=== PATIENT | male | born 1975 | race Caucasian/White ===

== ENCOUNTER 2021-09-18 19:16 | Emergency (ER) | payer OTHER, SELFPAY ==
--- NOTE | ~2021-09-18 | XR_ITS ---
EXAMINATION: XR SHOULDER, RIGHT CLINICAL INFORMATION: Right-sided shoulder pain COMPARISON: None TECHNIQUE: Three views of the right shoulder. FINDINGS: The bones and soft tissues are normal aside from the presence of a possible Hill-Sachs deformity involving the humeral head. No acute fracture. Glenohumeral and acromioclavicular alignment is anatomic with normal joint space. No abnormal soft tissue calcifications. XR/XR shoulder RT min 2V IMPRESSION: No acute fracture, subluxation or dislocation. Question of Hill-Sachs deformity humeral head
[2021-09-18 19:39] VITALS: BP 183/110; PULSE 80; RESP 18; TEMP 36.8; O2SAT 100; BMI 34.9
[2021-09-18] MEDS: Ibuprofen 600 MG TABLET PO (19:49)
--- NOTE | 2021-09-18 20:16 | ED_ITS ---
HPI - Extremity Problem General Chief complaint: Extremity Injury, Upper Stated complaint: Pec pain; injury at gym Time Seen by Provider: 09/18/21 20:16 History of Present Illness HPI Narrative: Patient complains of right-sided pectoral muscle pain when he felt a loud pop and sudden onset of severe pain while weightlifting He does use low-dose steroids for muscle building He denies any numbness or weakness no other injury Related Data Previous Rx's Medication Instructions Recorded acetaminophen 500 mg tablet 1,000 mg PO QID PRN #30 tab 09/18/21 ibuprofen 600 mg tablet 600 mg PO Q6H PRN #20 tab 09/18/21 oxycodone 5 mg tablet 5 mg PO Q6H PRN #14 tab 09/18/21 Allergies Allergy/AdvReac Type Severity Reaction Status Date / Time No Known Allergies Allergy Verified 09/18/21 19:39 Review of Systems Review of Systems: Positive for right pectoral chest wall pain Negatives are no fever no chills no dizziness no weakness no headache no neck pain no numbness weakness or tingling no other chest pain no shortness of breath no palpitations no abdominal pain no nausea or vomiting Yes all other systems are reviewed and are negative [facility] Past Medical History Source: nursing notes reviewed Medical History (Updated 09/19/21 @ 00:02 by Background Dakristen) No pertinent past medical history Social History Social History Advance Directives: No Advance Directives Information Provided: Yes Physical Exam 2 Vital Signs: Vital Signs: Last Vital Signs Temp 98.2 F 09/18/21 19:39 Pulse 80 09/18/21 19:39 Resp 18 09/18/21 19:39 BP 183/110 H 09/18/21 19:39 Pulse Ox 100 09/18/21 19:39 BMI result Body Mass Index 34.9 General appearance is no acute distress Head is normocephalic atraumatic Neck is supple and nontender The chest is clear to auscultation bilateral The chest wall had focal tenderness on the lateral aspect of the anterior right pectoral area, skin was normal no obvious swelling or ecchymosis now Movement of the area or tension of the muscle produced pain The abdomen was soft and nontender Extremities the right shoulder was not significantly tender but movement of the area did produce significant pain, the right arm was neurovascular intact distal and all skin was normal Neuro no focal motor sensory deficits Course Course Course Narrative: Patient with likely pectoral muscle tendon or muscle tear with a loud pop and abrupt onset of pain while exercising 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 muscle building was given a sling and discharged to follow with orthopedics, right shoulder x-ray was negative Discharge Plan Discharge Clinical Impression: Muscle tear Patient Disposition: Home, Self-Care Additional Instructions: I believe you tore your right biceps muscle or tendon Follow with orthopedist for further evaluation Return any time any worse condition or any concerns Your blood pressure was high in the ER 183/110 which may be from pain but it should be recheck with her primary care doctor to make sure you do not have high blood pressure Prescriptions: New ibuprofen 600 mg tablet 600 mg PO Q6H PRN (Reason: pain) Qty: 20 RF: 0 acetaminophen 500 mg tablet 1,000 mg PO QID PRN (Reason: pain) Qty: 30 RF: 0 oxycodone 5 mg tablet 5 mg PO Q6H PRN (Reason: pain) Qty: 14 RF: 0 Referrals: Karel Garcia MD [Physician] - 2 days (Right pectoral muscle tear) Stand Alone Forms: Work/School Release Interventions: ED Discharge Assessment Last Done: 09/18/21 20:41 Discharge Date/Time: 09/18/21 20:42
== END 2021-09-18 20:42 | disposition home or self-care (01) ==
PROVIDERS: Emergency Provider Emergency Medicine Emergency Medical Services
DX: S29.011A Strain of muscle and tendon of front wall of thorax, initial encounter (principal); X50.0XXA Overexertion from strenuous movement or load, initial encounter; Y93.B3 Activity, free weights; Y92.9 Unspecified place or not applicable; Y99.9 Unspecified external cause status
CPT/HCPCS: 73030; 99283

== ENCOUNTER → 2021-09-28 10:17 | Outpatient (BNVA) | payer OTHER, SELFPAY | PROVIDERS: Visit Provider Physician Assistant ==

== ENCOUNTER 2021-10-17 08:31 | Day surgery (SDC) | payer OTHER, SELFPAY ==
[2021-10-11 14:41] VITALS: BMI 34.9
--- NOTE | 2021-10-16 12:39 | P.CONAN_ITS ---
Documented by User: Kim Moore NP 10/16/21 12:40 HPI - Anesthesia Eval Consult details Narrative: 45yo M for Right Pectoralis Muscle Repair PMFSH Active Problems Active Problems: All Active Problems (Updated 09/28/21 @ 12:40 by Amie Hamilton PA-C) Pectoralis muscle rupture (Acute) Past Medical History Medical History (Updated 09/28/21 @ 12:40 by Amie Hamilton PA-C) No pertinent past medical history Surgical History Surgical History (Updated 10/11/21 @ 14:37 by Tamy Martell RN) Surgical history unknown Social History Social History (Updated 09/28/21 @ 10:27 by Chelsea Bush CMA) Patient Tobacco Use Status: Tobacco use Unknown Advance Directives: No Advance Directives Information Provided: Yes Advance Directives on File: No Current occupational status: employed 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 Allergies Allergy/AdvReac Type Severity Reaction Status Date / Time No Known Allergies Allergy Verified 09/28/21 10:26 Exam Exam Date and Time: October 16, 2021 1239 Height,Weight and Vital Signs: Height 5 ft 9 in Weight 107.501 kg Assessment and Plan Assessment Anesthesia Assessment: Chart Reviewed Documented by User: Garry Romano 10/17/21 09:47 PMFSH Past Medical History Medical History (Updated 09/28/21 @ 12:40 by Amie Hamilton PA-C) No pertinent past medical history Family History Family history of problems with anesthesia: No Surgical History Surgical History (Updated 10/11/21 @ 14:37 by Tamy Martell RN) Surgical history unknown History of Problems with Anesthesia: No Social History Social History (Updated 09/28/21 @ 10:27 by Chelsea Bush CMA) Patient Tobacco Use Status: Tobacco use Unknown Advance Directives: No Advance Directives Information Provided: Yes Advance Directives on File: No Current occupational status: employed 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 Allergies Allergy/AdvReac Type Severity Reaction Status Date / Time No Known Allergies Allergy Verified 09/28/21 10:26 Exam Airway Mallampati Class: III Neck ROM: Full Denture: Upper and Lower Loose/Missing/Broken Teeth: Yes Heart: rrr Lungs: bl breath sounds Assessment and Plan Final Anesthetic Review Family History of Problems with Anesthesia: No History of Problems with Anesthesia: No NPO: Yes ASA Class: II Final Preanesthetic Review: Meds/Allgs Chart Reviewed and Anes Risks/Benef Reviewed Patient Risk: Intermediate Procedure Risk: Intermediate Anesthetic Plan Anesthetic Plan: GA Disposition: Standard PACU
[2021-10-17] VITALS (18 sets, daily range): BP systolic 99–132; BP diastolic 43–79; PULSE 69–82; RESP 12–19; TEMP 36.4–36.9; O2SAT 93–98
[2021-10-17] MEDS: Lactated Ringers 1,000 ML 100 ML IVCONT (09:05)
--- NOTE | 2021-10-17 09:20 | MHC.SHP ---
Pre-Procedural Eval Section A Date of Service: 10/17/21 The patient is an INPATIENT: No Changes since office visit: Yes Patient answered all questions; No Cold of Flu in the past 2 weeks, No New Medical Problems and No Changes in Medication The History & Physical has been completed within 30 days and I have reviewed it.: Yes Section B Chief Complaint: strain of muscle Allergies: Allergies Allergy/AdvReac Type Severity Reaction Status Date / Time No Known Allergies Allergy Verified 09/28/21 10:26 Plan I have reviewed the history and physical and performed a pertinent physical examination on my patient. No changes have occurred unless specified.
--- NOTE | 2021-10-17 12:57 | PM.OP ---
Brief Operative Note Date of Service: 10/17/21 Pre-op diagnosis: Right pectoralis muscle rupture Post-op diagnosis: same Procedure: Right pectoralix muscle repair with allograft Implants: 4x6 dermal allograft and peters and nephew button x4 Surgeon: Karel Garcia MD Anesthesia: GETA and local Was an Product Safety And Standards Engineer used for this Procedure?: Yes Product Safety And Standards Engineer: Amie Hamilton Estimated blood loss (mL): 200 IV fluids (mL): 1,200 Pathology: none sent Condition: stable Disposition: PACU
[2021-10-17] MEDS: HYDROmorphone HCl 0.5 MG/0.5 ML SYRINGE 0.25 MG IVPUSH (13:55)
[2021-10-17] MEDS: oxyCODONE HCl Immed Release 5 MG TABLET PO (15:27)
[2021-10-17] MEDS: oxyCODONE HCl ER 10 MG TAB.ER.12H PO (15:29)
--- NOTE | 2021-10-22 12:09 | W.PM.OPN ---
Operative Note Operative Note Date of Service: 10/17/21 Narrative: Date of Service: 10/17/21 Pre-op diagnosis: Right pectoralis muscle rupture Post-op diagnosis: same Procedure: Right pectoralix muscle repair with allograft Implants: 4x6 dermal allograft and peters and nephew button x4 Surgeon: Karel Garcia MD Anesthesia: GETA and local Was an Senior Estimator used for this Procedure?: Yes Senior Estimator: Amie Hamilton Estimated blood loss (mL): 200 IV fluids (mL): 1,200 Pathology: none sent Condition: stable Disposition: PACU Patient was brought to the operating room and placed in a beach chair position on the surgical table. He was prepped and draped in standard sterile fashion and a time out was called to identify proper site, proper procedure and IV antibiotics per weight were administered. I began by making a deltopectoral incision. Once through the skin the cephalic vein was identified and retracted laterally and the deltopectoral interval was digitally explored. The pectoralis muscle was torn and retracted. There was an intact clavicular head of the subscapularis intact but the bony attachment of the sternal head had been avulsed. There was scarring both anteriorly and posteriorly with very hypertrophic pectoralis musculature. I was slowly able to identify the retracted tendon and tagged this with fiber tape suture. Because the retraction was extensive and the tendon diminutive I elected to place a dermal allograft around the tendon. This was whipstitched into place using 3 FiberTapes. I then was able to mobilize the pectoralis back to its humeral insertion just lateral to the bicipital groove. I then attached each of the suture tapes to a Peters and Nephew button. The anterior cortex was then drilled and each of these were dunked through their respective holes. The drill holes were staggered to avoid stress riser. I then roughed up the attachment site with a right sure and then brought H sutured down to the bone reapproximating the normal anatomy of the sternal head of the pectoralis muscle. My suture knots were tied and the arm was taken through range of motion. The repair was stable and the normal anatomy had been restored. Once this was done I irrigated copiously. I then closed with absorbable suture and and skin glue and Steri-Strips. Patient was placed in sterile dressing extubated brought to recovery room in stable condition. There were no known complications.
== END 2021-10-17 18:05 | disposition home or self-care (01) ==
PROVIDERS: Visit Provider Orthopaedic Surgery
PROC: (CPT 24341; principal; 2021-10-17 10:00)
DX: S29.011A Strain of muscle and tendon of front wall of thorax, initial encounter (principal); X50.0XXA Overexertion from strenuous movement or load, initial encounter; X50.3XXA Overexertion from repetitive movements, initial encounter; Y93.B3 Activity, free weights; Y92.39 Other specified sports and athletic area as the place of occurrence of the external cause
CPT/HCPCS: 24341; C1713; C1762; J0690; J1100; J1170; J2250; J2370; J2405; J3010

== ENCOUNTER → 2021-10-18 15:38 | Outpatient (BNVA) | payer OTHER, SELFPAY | PROVIDERS: Visit Provider Physician Assistant ==

== ENCOUNTER → 2021-10-22 10:39 | Outpatient (BNVA) | payer OTHER, SELFPAY | PROVIDERS: Visit Provider Physician Assistant | DX: S29.011A Strain of muscle and tendon of front wall of thorax, initial encounter (principal) ==

== ENCOUNTER → 2021-11-19 13:04 | Outpatient (BNVA) | payer OTHER, SELFPAY | PROVIDERS: Visit Provider Physician Assistant ==

== ENCOUNTER → 2021-12-17 12:57 | Outpatient (BNVA) | payer OTHER, SELFPAY | PROVIDERS: PCP Internal Medicine; Visit Provider Physician Assistant | DX: S29.011D Strain of muscle and tendon of front wall of thorax, subsequent encounter (principal); Z48.817 Encounter for surgical aftercare following surgery on the skin and subcutaneous tissue; X58.XXXD Exposure to other specified factors, subsequent encounter | CPT/HCPCS: 99212 ==

== ENCOUNTER → 2022-01-10 08:46 | Outpatient (BNVA) | payer OTHER, SELFPAY | PROVIDERS: PCP Internal Medicine; Visit Provider Orthopaedic Surgery | DX: Z13.89 Encounter for screening for other disorder (principal) ==

== ENCOUNTER 2022-01-11 11:14 | Emergency (ER) | payer OTHER, SELFPAY ==
--- NOTE | ~2022-01-11 | CT_ITS ---
EXAMINATION: CT ABDOMEN AND PELVIS WITHOUT AND WITH CONTRAST CLINICAL INFORMATION: Painless hematuria. COMPARISON: None available for comparison. TECHNIQUE: Multidetector volumetric imaging was performed of the abdomen and pelvis before and after the IV administration of 85 mL of Omnipaque 300 intravenous contrast. Sagittal and coronal reformatted images were obtained on the technologist's workstation. This CT examination was performed using dose optimization techniques as appropriate, variously including the following: *Automated exposure control *Adjustment of mA and/or kV according to patient size (this includes techniques or standardized protocols for targeted exams where dose is matched to indication/reason for exam; i.e. extremities or head) *Use of iterative reconstruction technique DLP: 1063 mGy-cm FINDINGS: LUNG BASES: The visualized lung bases are unremarkable. LIVER, GALLBLADDER, AND BILIARY TREE: The liver is normal in size, shape, and attenuation. No focal hepatic lesion or biliary ductal dilatation is present. The gallbladder is unremarkable with no evidence of radiopaque gallstones, gallbladder wall thickening, or obvious pericholecystic inflammatory changes. PANCREAS: Unremarkable SPLEEN: Unremarkable ADRENAL GLANDS: Unremarkable KIDNEYS AND URETERS: The kidneys are normal in size, shape, and attenuation. No hydronephrosis, hydroureter, or calculi seen. No perinephric stranding. BLADDER: Unremarkable GASTROINTESTINAL TRACT: Significant fecal residual is noted throughout the entire large bowel. Nonvisualized appendix. The small bowel loops are decompressed. The stomach is decompressed. ABDOMINAL WALL: No significant hernia is appreciated. LYMPH NODES: Evaluation of the retroperitoneum is technically limited due to lack of body fat, grossly unremarkable. VASCULAR: Grossly unremarkable. PELVIC VISCERA: The prostate measures 5.0 x 4.8 cm, mildly enlarged and is protruding into the base of the bladder. There is no evidence of any free fluid and/or free air. No definite pelvic lymphadenopathy. OSSEOUS STRUCTURES: Unremarkable CT/CT abdomen pelvis wo/w con IMPRESSION: 1. No CT evidence of any urinary tract calculi and/or upper tract mass identified. 2. Unremarkable appearance of the bladder. The prostate is mildly enlarged. 3. Significant fecal residual within the large bowel and nonvisualized appendix. Fleischner guidelines were followed.
[2022-01-11 11:16] VITALS: BP 150/91; PULSE 75; RESP 20; TEMP 36.4; O2SAT 98; BMI 33.2
[2022-01-11 11:29] LABS: MANUAL DIFF FLAG NO
[2022-01-11 11:33] LABS: Basophils Percent Auto 0.4 % (0-2); Eosinophils Absolute Auto 0.1 X10*3/uL (0.0-0.4); Eosinophils Percent Auto 1.8 % (0-4); Hematocrit 42.8 % (42.0-52.0); Imm Gran Abs Auto 0.03 X10*3/uL (0.00-0.03); Imm Gran Pct Auto 0.4 % (0.0-0.4); Lymphocytes Absolute Auto 1.3 X10*3/uL (1.2-4.9); Lymphocytes Percent Auto 17.9 % (20-40); Mean Corpuscular HGB Conc 32.7 g/dl (31.0-36.0); Mean Corpuscular Hemoglobin 29.3 pg (27.0-33.0); Mean Corpuscular Volume 89.5 fL (80.0-98.0); Mean Platelet Volume 8.5 fL (9.4-12.4); Monocytes Absolute Auto 0.4 X10*3/uL (0.1-1.2); Monocytes Percent Auto 6.1 % (2-11); Neutrophils Absolute Auto 5.2 x10*3/uL (2.0-8.3); Neutrophils Percent Auto 73.4 % (45-73); Platelet Count 348 X10*3/uL (160-400); Red Blood Count 4.78 X10*6/uL (4.60-5.80); Red Cell Distribution Width 13.7 % (11.0-16.0)
[2022-01-11 11:48] LABS: Alanine Aminotransferase 30 U/L (0-40); Alkaline Phosphatase 65 U/L (39-117); Anion Gap 10 (12-20); Aspartate Amino Transferase 25 U/L (5-37); Bilirubin Total 0.5 mg/dL (0.0-1.0); Blood Urea Nitrogen 18 mg/dL (9-16); Calcium 9.6 mg/dL (8.4-10.2); Carbon Dioxide 27 mmol/L (22-29); Chloride 107 mmol/L (96-108); Creatinine Clr Calc Pharmacy 75.9; Estimated Glomerular Filt Rate 53; Glucose Random 136 mg/dL (60-115); Potassium 4.4 mmol/L (3.3-5.1); Sodium 140 mmol/L (135-145); Total Protein 7.2 g/dL (6.5-8.0)
--- NOTE | 2022-01-11 11:49 | ED_ITS ---
HPI - Male Genitourinary General Chief complaint: Urogenital-Male Stated complaint: Blood in urine Time Seen by Provider: 01/11/22 11:38 Source: patient Mode of arrival: ambulatory History of Present Illness HPI Narrative: 46-year-old male with a PMHx s/p right pectoralis repair 10/17/21, presenting to the ED complaining of gross hematuria since last night. Denies fever, chills, abdominal pain, flank pain, dysuria, hesitancy, frequency, lightheadedness/dizziness. Denies taking anticoagulation Onset (ago): day(s) Related Data Previous Rx's Medication Instructions Recorded acetaminophen 500 mg tablet 1,000 mg PO QID PRN #30 tab 09/18/21 oxycodone 10 mg tablet,crush 10 mg PO Q12H 3 Days #6 tab 10/17/21 resistant,extended release 12 hr (OxyContin) clotrimazole 1 % topical cream 1 appl TOPICAL BID 28 Days #15 g 11/19/21 oxycodone-acetaminophen 5 mg-325 1 tab PO .QD PRN 7 Days #7 tab 12/27/21 mg tablet (Percocet) diclofenac sodium 50 mg 50 mg PO BID #60 tab 01/10/22 tablet,delayed release gabapentin 300 mg capsule 300 mg PO BEDTIME #30 cap 01/10/22 cefuroxime axetil 250 mg tablet 250 mg PO BID 7 Days #14 tab 01/11/22 Allergies Allergy/AdvReac Type Severity Reaction Status Date / Time No Known Allergies Allergy Verified 01/10/22 08:51 Review of Systems Review of Systems: Constitutional: No Fever, No Chills, No Fatigue, No Malaise ENT/Mouth: No Ear Pain, No Nasal Congestion, No sore throat, No Rhinorrhea Eyes: No Eye Pain, No Swelling, No Redness, No Vision Changes Cardiovascular: No Chest Pain, No SOB Respiratory: No Cough, No Sputum, No Dyspnea Gastrointestinal: No Nausea, No Vomiting, No Diarrhea, No Constipation, No Abdominal pain Genitourinary: No Dysuria, No Urinary Frequency, + Hematuria, No Urinary Incontinence, No Urgency, No Flank Pain, No Urinary Flow Changes, No Hesitancy Musculoskeletal: No joint pain, No Myalgias, No Joint Swelling Skin: No Skin Lesions, No rash Neuro: No Weakness, No Loss of Consciousness, No Dizziness, No Headache Yes all other systems are reviewed and are negative [facility] Past Medical History Attestation statement: The following information was validated with the patient. 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 Physical Exam Vital Signs: Vital Signs: Last Vital Signs Temp 98.1 F 01/11/22 13:17 Pulse 54 01/11/22 13:17 Resp 18 01/11/22 13:17 BP 145/87 H 01/11/22 13:17 Pulse Ox 100 01/11/22 13:17 BMI result Body Mass Index 33.2 Const: General: cooperative, healthy appearing and no acute distress Orientation/consciousness: patient oriented x3 Limitations: no limitations HEENT: Head: Yes normal to inspection and Yes atraumatic Ears: hearing grossly normal bilaterally General nose exam: Normal external nose present Face and sinus: Yes normal facial exam Eyes: General: appearance normal, both eyes and all related structures EOM: EOMs intact bilaterally Neck: Neck: Yes normal visual inspection and Yes no meningeal signs Resp: Effort & Inspection: normal respiratory effort and no respiratory distress Cardio: Rate: regular rate Heart sounds: S1 normal heart sound present and S2 normal heart sound present GI: Inspection: Yes normal to inspection Palpation (GI): Soft to palpation, nontender, no guarding and not rigid : General: Yes no CVA tenderness Back/Spine/Pelvis: Back: no CVA tenderness Skin: Rashes: no rashes Wounds: no wounds Neuro: General: patient oriented x3, tone normal and no meningeal signs Gait exam (Neuro): Normal gait present Extrem: General: Yes normal to inspection Course Course Course Narrative: -mild ADRIANNA with a creatinine 1.43, no priors to compare. CPK elevated to 986 >> will give 2 L IVF and repeat > on further questioning patient denies any excessive working out or soreness, admits does go to gym daily. Compartments soft, low concern for compartment syndrome -UA with blood and RBCs as well as wbc's. > case discussed with Dr. Tracey, will obtain CT with and without contrast to rule out malignancy -repeat BMP with improvement in renal function w/ creatinine 1.[address] abdomen pelvis wo/w con IMPRESSION: ? 1. No CT evidence of any urinary tract calculi and/or upper tract mass identified. 2. Unremarkable appearance of the bladder. The prostate is mildly enlarged. 3. Significant fecal residual within the large bowel and nonvisualized appendix.? Fleischner guidelines were followed. >> results discussed with patient as well as worrisome signs and symptoms and strict return precautions and need a close follow-up with Urology. He verbalized understanding and feel safe discharge MDM - Male Genitourinary MDM Narrative Medical decision making narrative: 46-year-old male with a PMHx s/p right pectoralis repair 10/17/21, presenting to the ED complaining of gross hematuria since last night. On exam vital signs stable, NAD/nontoxic, abdomen soft/nontender, no CVA tenderness. Concern for UTI vs Renal stone vs ADRIANNA vs glomerular dz vs ?malignancy vs rhabdo Plan: labs, UA, +/- imaging Differential Diagnosis Differential diagnosis: Likely urinary tract infection Medical Records Attestation: I reviewed the patient's medical records. Lab Data Attestation: I reviewed the patient's lab results. Result diagrams: 01/11/22 11:23 01/11/22 14:36 Labs: Lab Results 01/11/22 01/11/22 01/11/22 Range/Units 11:23 11:23 11:55 WBC 7.0 (4.8-10.8) X10*3/uL RBC 4.78 (4.60-5.80) X10*6/uL Hgb 14.0 (14.0-18.0) g/dl Hct 42.8 (42.0-52.0) % MCV 89.5 (80.0-98.0) fL MCH 29.3 (27.0-33.0) pg MCHC 32.7 (31.0-36.0) g/dl RDW 13.7 (11.0-16.0) % Plt Count 348 (160-400) X10*3/uL MPV 8.5 L (9.4-12.4) fL Immature Gran % (Auto) 0.4 (0.0-0.4) % Neut % (Auto) 73.4 H (45-73) % Lymph % (Auto) 17.9 L (20-40) % [place] % (Auto) 6.1 (2-11) % Eos % (Auto) 1.8 (0-4) % Baso % (Auto) 0.4 (0-2) % Lymph # (Auto) 1.3 (1.2-4.9) X10*3/uL [place] # (Auto) 0.4 (0.1-1.2) X10*3/uL Eos # (Auto) 0.1 (0.0-0.4) X10*3/uL Baso # (Auto) 0.0 (0.0-0.2) X10*3/uL Abs Immat Gran (auto) 0.03 (0.00-0.03) X10*3/uL Absolute Neuts (auto) 5.2 (2.0-8.3) x10*3/uL Absolute Nucleated RBC 0.000 (0.0-0.012) X10*3/uL Nucleated RBC % (auto) 0.0 (0.0-0.2) /100WBC Sodium 140 (135-145) mmol/L Potassium 4.4 (3.3-5.1) mmol/L Chloride 107 (96-108) mmol/L Carbon Dioxide 27 (22-29) mmol/L Anion Gap 10 L (12-20) BUN 18 H (9-16) mg/dL Creatinine 1.43 H (0.5-1.4) mg/dL Estim Creat Clear Calc 75.9 Estimated GFR 53 Random Glucose 136 H (60-115) mg/dL Calcium 9.6 (8.4-10.2) mg/dL Total Bilirubin 0.5 (0.0-1.0) mg/dL AST 25 (5-37) U/L ALT 30 (0-40) U/L Alkaline Phosphatase 65 (39-117) U/L Total Creatine Kinase 986 H (38-174) U/L Total Protein 7.2 (6.5-8.0) g/dL Albumin 4.0 (3.5-5.0) g/dL Urine Color RED A Urine Appearance TURBID Urine pH 6.0 (5.0-8.0) Ur Specific [place] >= 1.030 H (1.005-1.025) Urine Protein 2+ H (NEG-TRACE) MG/DL Urine Glucose (UA) NEG (NEG) MG/DL Urine Ketones NEG (NEG) MG/DL Urine Blood 3+ H (NEG) Urine Nitrite NEG (NEG) Ur Leukocyte Esterase NEG (NEG) Urine RBC TNTC H (0) /HPF Urine WBC 15-29 H (0-4) /HPF Ur Squamous Epith Cells NONE /LPF Urine Bacteria NONE /LPF Urine Mucus 1+ /LPF 01/11/ Range/Units 14:36 WBC (4.8-10.8) X10*3/uL RBC (4.60-5.80) X10*6/uL Hgb (14.0-18.0) g/dl Hct (42.0-52.0) % MCV (80.0-98.0) fL MCH (27.0-33.0) pg MCHC (31.0-36.0) g/dl RDW (11.0-16.0) % Plt Count (160-400) X10*3/uL MPV (9.4-12.4) fL Immature Gran % (Auto) (0.0-0.4) % Neut % (Auto) (45-73) % Lymph % (Auto) (20-40) % [place] % (Auto) (2-11) % Eos % (Auto) (0-4) % Baso % (Auto) (0-2) % Lymph # (Auto) (1.2-4.9) X10*3/uL [place] # (Auto) (0.1-1.2) X10*3/uL Eos # (Auto) (0.0-0.4) X10*3/uL Baso # (Auto) (0.0-0.2) X10*3/uL Abs Immat Gran (auto) (0.00-0.03) X10*3/uL Absolute Neuts (auto) (2.0-8.3) x10*3/uL Absolute Nucleated RBC (0.0-0.012) X10*3/uL Nucleated RBC % (auto) (0.0-0.2) /100WBC Sodium 140 (135-145) mmol/L Potassium 4.5 (3.3-5.1) mmol/L Chloride 108 (96-108) mmol/L Carbon Dioxide 27 (22-29) mmol/L Anion Gap 10 L (12-20) BUN 17 H (9-16) mg/dL Creatinine 1.19 (0.5-1.4) mg/dL Estim Creat Clear Calc 91.3 Estimated GFR > 60 Random Glucose 119 H (60-115) mg/dL Calcium 8.9 D (8.4-10.2) mg/dL Total Bilirubin (0.0-1.0) mg/dL AST (5-37) U/L ALT (0-40) U/L Alkaline Phosphatase (39-117) U/L Total Creatine Kinase 831 H (38-174) U/L Total Protein (6.5-8.0) g/dL Albumin (3.5-5.0) g/dL Urine Color Urine Appearance Urine pH (5.0-8.0) Ur Specific [place] (1.005-1.025) Urine Protein (NEG-TRACE) MG/DL Urine Glucose (UA) (NEG) MG/DL Urine Ketones (NEG) MG/DL Urine Blood (NEG) Urine Nitrite (NEG) Ur Leukocyte Esterase (NEG) Urine RBC (0) /HPF Urine WBC (0-4) /HPF Ur Squamous Epith Cells /LPF Urine Bacteria /LPF Urine Mucus /LPF Discharge Plan Discharge Clinical Impression: Gross hematuria, Acute UTI Patient Disposition: Home, Self-Care Instructions: Urinary Tract Infection in Men (DC), Hematuria (ED) Additional Instructions: Blood work showed some dehydration as well as mild elevation in your muscle breakdown level, it is important that he stay hydrated at home Your urine had a lot of blood in it as well as evidence of an infection. Ceftin is an antibiotic take as prescribed Your CT scan does not show any acute mass or renal stone You need to follow-up with Urology, call Friday to make an appointment If symptoms persist or worsen, you develop abdominal pain, nausea/vomiting, fever or back pain please return to the ED Prescriptions: New cefuroxime axetil 250 mg tablet 250 mg PO BID 7 Days Qty: 14 0RF No Action oxycodone-acetaminophen [Percocet] 5-325 mg tablet 1 tab PO .QD PRN (Reason: pain (scale score 4-6)) 7 Days Qty: 7 0RF acetaminophen 500 mg tablet 1,000 mg PO QID PRN (Reason: pain) Qty: 30 0RF oxycodone [OxyContin] 10 mg tablet,oral only,ext.rel.12 hr 10 mg PO Q12H 3 Days Qty: 6 0RF clotrimazole 1 % cream 1 appl topical BID 28 Days Qty: 15 0RF gabapentin 300 mg capsule 300 mg PO BEDTIME Qty: 30 0RF diclofenac sodium 50 mg tablet,delayed release (DR/EC) 50 mg PO BID Qty: 60 0RF Referrals: Janak Haynes MD [Physician] - 3 days
[2022-01-11] MEDS: 0.9 % Sodium Chloride 1,000 ML 999 ML IV ×2 (12:18→13:02)
[2022-01-11 12:22] LABS: Appearance Urine TURBID; Color Urine RED; Glucose Urine UA NEG (NEG); Leukocyte Esterase Urine NEG (NEG); Nitrite Urine NEG (NEG); UACC Culture Trigger NO; Urine Blood 3+ (NEG); Urine Ketones NEG (NEG); Urine Protein 2+ MG/DL (NEG-TRACE)
[2022-01-11 12:23] LABS: Specific Gravity - Urine >= 1.030 (1.005-1.025)
[2022-01-11 12:31] LABS: RBC Urine TNTC /HPF (0); UACC CULT YES
[2022-01-11 12:32] LABS: Mucus Urine 1+ /LPF
[2022-01-11 13:17] VITALS: BP 145/87; PULSE 54; RESP 18; TEMP 36.7; O2SAT 100
[2022-01-11 15:00] LABS: Anion Gap 10 (12-20); Blood Urea Nitrogen 17 mg/dL (9-16); Calcium 8.9 mg/dL (8.4-10.2); Carbon Dioxide 27 mmol/L (22-29); Chloride 108 mmol/L (96-108); Creatinine Clr Calc Pharmacy 91.3; Estimated Glomerular Filt Rate > 60; Glucose Random 119 mg/dL (60-115); Potassium 4.5 mmol/L (3.3-5.1); Sodium 140 mmol/L (135-145)
[2022-01-11] MEDS: iohexoL 350 MG/ML 100 ML INFUS..BTL IV (15:39)
== END 2022-01-11 16:49 | disposition home or self-care (01) ==
PROVIDERS: Physician Assistant; Emergency Provider Emergency Medicine Emergency Medical Services
DX: N39.0 Urinary tract infection, site not specified (principal); R31.9 Hematuria, unspecified; Z79.899 Other long term (current) drug therapy
CPT/HCPCS: 36415; 74178; 80048; 80053; 81001; 81003; 82550; 85025; 87086; 96360; 99284; Q9967

== ENCOUNTER 2022-01-25 10:00 | Outpatient (RCR) | payer OTHER, SELFPAY | END 2022-03-26 13:18 | disposition home or self-care (01) | LOC: HO.PT 10:00 | PROVIDERS: PCP Internal Medicine; Visit Provider Physician Assistant | DX: S29.011D Strain of muscle and tendon of front wall of thorax, subsequent encounter (principal) | CPT/HCPCS: 97110; 97112; 97140; 97161 ==

== ENCOUNTER 2025-07-06 13:21 | Inpatient (IN) | payer MEDICAID, SELFPAY ==
--- NOTE | ~2025-07-06 | XR_ITS ---
EXAMINATION: XR SHOULDER, LEFT CLINICAL INFORMATION: infection over lateral shoulder COMPARISON: None available. TECHNIQUE: Three views of the left shoulder. FINDINGS: No visible acute fracture or dislocation. Acromioclavicular articulation is maintained. Glenohumeral joint space is maintained. No radiographic evidence of osseous erosion or destructive changes.. No radiopaque foreign body. No air is seen in the soft tissues. XR/XR shoulder LT min 2V IMPRESSION: No radiographic evidence of acute osseous findings. Electronically signed by: Chico Prado MD 07/06/2025 02:20 PM EDT
--- NOTE | ~2025-07-06 | CT_ITS ---
CLINICAL HISTORY: abscess CT left shoulder with IV contrast. Comparison: X-rays left shoulder 07/06/2025 at 1:15 p.m. Findings: There is a 2.9 cm x 4.9 cm by 5.8 cm (transverse, AP and craniocaudal measurements respectively) loculated fluid collection in the lateral aspect involving the soft tissues and appears to involve deltoid muscle. No additional loculated fluid collections. No soft tissue gas. No acute fracture. No dislocation. Mild degenerative changes of the humeral head with subcortical cyst formation. Visualized part of left lung is grossly clear. Impression: 1. 2.9 cm x 4.9 cm x 5.8 cm abscess in the left shoulder laterally which involve the soft tissues in the the deltoid muscle. 2. No additional acute findings. This document has been electronically signed by: Jessi Fritz MD on 07/06/2025 22:05:37
[2025-07-06 13:41] VITALS: BP 184/106; PULSE 95; RESP 18; TEMP 37.2; O2SAT 97; BMI 32.5
--- NOTE | 2025-07-06 13:45 | ED.EXTPRO ---
HPI - Extremity Problem General Chief complaint: Extremity Problem Stated complaint: shoulder pain Time Seen by Provider: 07/06/25 18:17 Source: patient Mode of arrival: ambulatory Limitations: no limitations History of Present Illness ED Provider: Dr. Neely HPI Narrative: 49-year-old male presented hospital today for abscess of the left shoulder. Patient has had IM shot of testosterone. Patient stated the swelling has gotten worse. Denies any fever currently. He does get on and off fever and chills. Related Data Previous Rx's ?Medication ?Instructions ?Recorded acetaminophen 500 mg tablet 1,000 mg (2 x 500 mg) PO QID PRN 09/18/21 pain #30 tabs oxycodone 10 mg tablet,crush 10 mg PO Q12H pain 3 days #6 tabs 10/17/21 resistant,extended release 12 hr (OxyContin) clotrimazole 1 % topical cream 1 appl topical BID 4 weeks #15 11/19/21 grams oxycodone-acetaminophen 5 mg-325 1 tab PO .QD PRN pain (scale score 12/27/21 mg tablet (Percocet) 4-6) 7 days #7 tabs gabapentin 300 mg capsule 300 mg PO BEDTIME #30 caps 01/10/22 cefuroxime axetil 250 mg tablet 250 mg PO BID 7 days #14 tabs 01/11/22 diclofenac sodium 50 mg 50 mg PO BID #60 tabs 02/07/22 tablet,delayed release Allergies Allergy/AdvReac Type Severity Reaction Status Date / Time No Known Allergies Allergy Verified 07/06/25 13:43 Review of Systems Review of Systems: Pertinent review of systems as mentioned in HPI. All other system otherwise negative. 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 Does not appear to be involving the joint at this time. CMS intact of the left upper extremity. Neurological: Awake and alert, no facial droop noted Skin: Warm and dry Psychiatric: Appropriate mood and thoughts Vital Signs: Vital Signs: Last Vital Signs Temp 98.4 F 07/06/25 21:11 Pulse 89 07/06/25 21:11 Resp 19 07/06/25 21:11 BP 156/85 H 07/06/25 21:11 Pulse Ox 96 07/06/25 21:11 O2 Del Method Room Air 07/06/25 21:11 BMI result Body Mass Index 32.5 Course Course Course Narrative: This is a Rapid Medical Examination (RME) performed by Brad Lutz PA-C in triage. Full HPI, ROS, assessment and treatment plan per primary provider in the Main ED. Hx: 49 yo M here for eval of abscess to L shoulder x1 week s/p injecting TRT (Testosterone). PE/vitals: FROM intact to L shoulder. noted abscess over L deltoid region, fluctuant, warm, erythematous. no streaking Plan: labs, lactic/bc, imaging Medications Administered Discontinued Medications Generic Name Dose Route Start Last Admin Trade Name Nagiq PRN Reason Stop Dose Admin Acetaminophen 975 mg 07/06/25 19:20 07/06/25 19:40 Acetaminophen 325 Mg Tablet PO 07/06/25 19:21 975 mg ONCE ONE Administration Ceftriaxone Sodium 2 gm 07/06/25 20:31 07/06/25 22:05 Ceftriaxone Sodium 2 Gm Vial IVPUSH 07/06/25 20:32 2 gm ONCE ONE Administration Cephalexin HCl 500 mg 07/06/25 19:20 07/06/25 19:39 Cephalexin 500 Mg Capsule PO 07/06/25 19:21 500 mg ONCE ONE Administration Doxycycline Monohydrate 100 mg 07/06/25 19:20 07/06/25 19:39 Doxycycline Monohydrate 100 Mg Capsule PO 07/06/25 19:21 100 mg ONCE ONE Administration Vancomycin HCl 2,000 mg in 500 mls @ 250 mls/hr 07/06/25 20:31 07/06/25 22:05 Vancomycin/Ns IV 07/06/25 22:30 250 mls/hr ONCE ONE Administration Iohexol 100 ml 07/06/25 21:28 07/06/25 21:29 Iohexol 350 Mg/Ml 100 Ml Infus..Btl IV 07/06/25 21:29 85 ml ONCE ONE Administration Lidocaine HCl 5 ml 07/06/25 18:55 07/06/25 19:10 Lidocaine Hcl 2 % Mpf 5 Ml Vial INFILTRATI 07/06/25 18:56 5 ml ONCE ONE Administration Morphine Sulfate 4 mg 07/06/25 21:11 07/06/25 22:04 Morphine Sulfate 4 Mg/Ml Cartridge IVPUSH 07/06/25 21:12 4 mg ONCE ONE Administration Protocol Oxycodone HCl 5 mg 07/06/25 19:20 07/06/25 19:39 Oxycodone Hcl Immed Release 5 Mg Tablet PO 07/06/25 19:21 5 mg ONCE ONE Administration Medical Decision Making Medical Decision Making [facility] Narrative: 49-year-old male presented hospital today for left shoulder abscess. Patient has had lab work performed no leukocytosis. Chemistries unremarkable. Does have elevated CRP likely secondary today abscess. X-ray of the shoulder was unremarkable. We will plan for an I&D. And lidocaine will be used for this. I do not think patient has sepsis. Sepsis focused exam was performed. I perform I&D of patient's abscess. 30 cc of pus was removed. Patient has does have slight decrease in the abscess. I did attempted to de loculated. There was continuous drainage. However patient is complaining of pain. Due to this we have stopped the drainage. We will obtain a CT of the left upper extremity. CT imaging shows a 3cm x 5x5 cm abscess. He has no sign of sepsis. IV vancomycin and IV ceftriaxone will be given to the patient at this time. Due to the extent of the infection in remaining abscess. We will admit the patient to the hospital. Discussed the case with the surgical and hospitalist team. Surgical team we will plan to admit to their service at this time. Differential Diagnosis Differential Diagnoses: The differential diagnosis associated with the presentation includes Folliculitis, abscess, cellulitis. Consult Healthcare Provider Management of the patient was discussed with: Hospitalist and Bicycle I Assembler (Carole ( General Surgery)) Lab Data [facility] Lab Attestation statement: I reviewed the patient's lab results. 07/06/25 14:02 07/06/25 14:02 Labs: Lab Results 07/06/25 07/06/25 Range/Units 14:02 20:45 WBC 10.5 (4.8-10.8) X10*3/uL RBC 4.69 (4.60-5.80) X10*6/uL Hgb 12.6 L (14.0-18.0) g/dl Hct 39.2 L (42.0-52.0) % MCV 83.6 (80.0-98.0) fL MCH 26.9 L (27.0-33.0) pg MCHC 32.1 (31.0-36.0) g/dl RDW 14.4 (11.0-16.0) % Plt Count 398 (160-400) X10*3/uL MPV 8.0 L (9.4-12.4) fL Immature Gran % (Auto) 1.7 H (0.0-0.4) % Neut % (Auto) 65.8 (45-73) % Lymph % (Auto) 21.4 (20-40) % [place] % (Auto) 7.9 (2-11) % Eos % (Auto) 3.0 (0-4) % Baso % (Auto) 0.2 (0-2) % Lymph # (Auto) 2.2 (1.2-4.9) X10*3/uL [place] # (Auto) 0.8 (0.1-1.2) X10*3/uL Eos # (Auto) 0.3 (0.0-0.4) X10*3/uL Baso # (Auto) 0.0 (0.0-0.2) X10*3/uL Abs Immat Gran (auto) 0.18 H (0.00-0.03) X10*3/uL Absolute Neuts (auto) 6.9 (2.0-8.3) x10*3/uL Absolute Nucleated RBC 0.000 (0.0-0.012) X10*3/uL Nucleated RBC % (auto) 0.0 (0.0-0.2) /100WBC ESR 51 H (0-15) MM/HR Sodium 138 (135-145) mmol/L Potassium 3.8 (3.3-5.1) mmol/L Chloride 107 (96-108) mmol/L Carbon Dioxide 25 (22-29) mmol/L Anion Gap 10 L (12-20) BUN 16 (9-16) mg/dL Creatinine 1.20 (0.5-1.4) mg/dL Estim Creat Clear Calc 86.7 Estimated GFR > 60 Random Glucose 98 (60-115) mg/dL Lactic Acid 0.9 0.9 (0.5-2.0) mmol/L Calcium 8.6 (8.4-10.2) mg/dL Magnesium 1.9 (1.6-2.6) mg/dL Total Bilirubin 0.2 (0.0-1.0) mg/dL AST 27 (5-37) U/L ALT 29 (0-40) U/L Alkaline Phosphatase 61 (39-117) U/L C-Reactive Protein 3.82 H (< or = 0.50) mg/dL Total Protein 8.6 H (6.5-8.0) g/dL Albumin 3.4 L (3.5-5.0) g/dL Independent Interpretation I performed an independent interpretation of an: CT Scan Radiology Impression Discussion of test interpretation with radiology: I have reviewed the radiologist's reading. Procedures Abscess I/D Site: upper extremity Side (if applicable): left (Deltoid) Local Anesthetic: lidocaine 2% Amount of anesthesia used (mL): 5 Technique: incised with blade Amount of fluid expressed (mL): 30 Irrigation: Yes Packing used?: none Complications: pain Discharge Plan Discharge Clinical Impression: Abscess Patient Disposition: Admitted As Inpatient Print Language: Mongolian
[2025-07-06 14:09] LABS: MANUAL DIFF FLAG NO
[2025-07-06 14:10] LABS: Hematocrit 39.2 % (42.0-52.0); Hemoglobin 12.6 g/dl (14.0-18.0); Imm Gran Abs Auto 0.18 X10*3/uL (0.00-0.03); Imm Gran Pct Auto 1.7 % (0.0-0.4); Lymphocytes Absolute Auto 2.2 X10*3/uL (1.2-4.9); Mean Corpuscular HGB Conc 32.1 g/dl (31.0-36.0); Mean Corpuscular Hemoglobin 26.9 pg (27.0-33.0); Mean Corpuscular Volume 83.6 fL (80.0-98.0); NRBC Abs Auto 0.000 X10*3/uL (0.0-0.012); NRBC Pct Auto 0.0 /100WBC (0.0-0.2); Platelet Count 398 X10*3/uL (160-400); Red Blood Count 4.69 X10*6/uL (4.60-5.80); White Blood Count 10.5 X10*3/uL (4.8-10.8)
[2025-07-06 14:31] LABS: Alanine Aminotransferase 29 U/L (0-40); Albumin Level 3.4 g/dL (3.5-5.0); Alkaline Phosphatase 61 U/L (39-117); Anion Gap 10 (12-20); Aspartate Amino Transferase 27 U/L (5-37); Blood Urea Nitrogen 16 mg/dL (9-16); Calcium 8.6 mg/dL (8.4-10.2); Carbon Dioxide 25 mmol/L (22-29); Chloride 107 mmol/L (96-108); Creatinine Clr Calc Pharmacy 86.7; Estimated Glomerular Filt Rate > 60; Magnesium 1.9 mg/dL (1.6-2.6); Potassium 3.8 mmol/L (3.3-5.1); Sodium 138 mmol/L (135-145); Total Protein 8.6 g/dL (6.5-8.0)
[2025-07-06] MEDS: Lidocaine HCl 2 % MPF 5 ML VIAL INFILTRATI (19:10)
[2025-07-06] MEDS: oxyCODONE HCl Immed Release 5 MG TABLET PO ×2 (19:39→23:52)
[2025-07-06 21:11] VITALS: BP 156/85; PULSE 89; RESP 19; TEMP 36.9; O2SAT 96
--- NOTE | 2025-07-06 21:27 | PC.NURSE ---
Assumed care of pt at 2109, IV placed #20 L-upper forearm. Pt gone to imaging. will medicate upon return.
[2025-07-06] MEDS: iohexoL 350 MG/ML 100 ML INFUS..BTL IV (21:29)
[2025-07-06] MEDS: vancomycin/NS 2,000 MG/500 ML PLAST..BAG 250 MG IV (22:05)
[2025-07-07] MEDS: 0.9 % Sodium Chloride Flush 3 ML SYRINGE IVFLUSH ×3 (01:22→23:10)
[2025-07-07] MEDS: Lactated Ringers 1,000 ML 100 ML IVCONT (01:23)
[2025-07-07 03:47] VITALS: BP 170/107; PULSE 85; RESP 18; TEMP 37; O2SAT 96
[2025-07-07 04:51] LABS: Anion Gap 12 (12-20); Blood Urea Nitrogen 15 mg/dL (9-16); Calcium 8.3 mg/dL (8.4-10.2); Carbon Dioxide 25 mmol/L (22-29); Chloride 105 mmol/L (96-108); Creatinine Clr Calc Pharmacy 77.6; Estimated Glomerular Filt Rate 57; Potassium 3.9 mmol/L (3.3-5.1); Sodium 138 mmol/L (135-145)
--- NOTE | 2025-07-07 05:49 | PM.HPGS ---
History of Present Illness History of Present Illness Date of Service: 07/07/25 Chief complaint: left arm cellulitis and abscess Narrative: Markos Bravo is a 49 year old male with no known PMH who presented with left shoulder pain. He had an IM testosterone injection last week and subsequently developed pain two days later. The pain has been worsening over the past few days associated with swelling, redness and warmth of the area. He had subjective fevers. He therefore came to the ED. Work up included CBC, BMP, LFTs. He had no leukocytosis or lactic acidosis. Left shoulder xray was unremarkable. He had an obvious fluctuance of the soft tissue overlying the left deltoid area with surrounding cellulitis suggesting an abscess. An I&D was attempted with about 30cc of purulent drainage. The patient however did not tolerate this well and the procedure was stopped due to pain. CT scan was then performed of the left shoulder/upper extremity which showed 2.9 x 4.9 x 5.8 cm loculated fluid collection in the soft tissues at the deltoid. Admission was requested due to the persistent abscess collection and further treatment of the left arm cellulitis. He denies fevers, chills, nausea, vomiting, abdominal pain, diarrhea, chest pain. He reports some shortness of breath at night and was told prior he has sleep apnea but he does not use CPAP. He has not seen a PCP in many years. Review of Systems Review of Systems: Yes all other systems are reviewed and are negative [facility] Past Medical History Medical History (Updated 07/07/25 @ 08:26 by Carole Horner PA-C) No pertinent past medical history Surgical History Surgical History (Updated 07/07/25 @ 06:04 by Carole Horner PA-C) S/P repair of pectoralis muscle tear Surgical history unknown Social History Social History Patient Tobacco Use Status: Current everyday Tobacco user Smoked in Last 30 Days: Yes Substance Use Type: Marijuana Substance Use Frequency: Chronic Longstanding Advance Directives: No Advance Directives Information Provided: No Do you have a plan to hurt others: No Plan Nutrition Risks: No Nutritional Risk Current occupational status: employed 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 Meds Allergies Allergy/AdvReac Type Severity Reaction Status Date / Time No Known Allergies Allergy Verified 07/06/25 13:43 Active Medications: Current Medications Acetaminophen (Acetaminophen 325 Mg Tablet) 650 mg PO Q6H PRN PRN Reason: Pain, Mild 1-3,fever,headache Calcium Carbonate (Calcium Carbonate 750 Mg Tab.Chew) 750 mg PO Q4H PRN PRN Reason: Heartburn Docusate Sodium (Docusate Sodium 100 Mg Capsule) 100 mg PO BID [facility] Hydromorphone HCl (Hydromorphone Hcl 1 Mg/Ml Syringe) 0.5 mg IVPUSH Q4H PRN; Protocol PRN Reason: Pain, Severe (Pain Scale 7-10) Lactated Ringer's (Lr) 1,000 mls @ 100 mls/hr IVCONT .Q10H [facility] Last Admin: 07/07/25 01:23 Dose: 100 mls/hr Doxycycline Hyclate 100 mg/ (Sodium Chloride) 250 mls @ 166.67 mls/hr IV Q12H [facility] Magnesium Hydroxide (Milk Of Magnesia 30 Ml Oral.Susp) 30 ml PO DAILY PRN PRN Reason: Constipation Melatonin (Melatonin 3 Mg Tablet) 6 mg PO BEDTIME PRN PRN Reason: Insomnia Ondansetron HCl (Ondansetron Hcl 4 Mg/2 Ml Vial) 4 mg IVPUSH Q8H PRN PRN Reason: Nausea and Vomiting Oxycodone HCl (Oxycodone Hcl Immed Release 5 Mg Tablet) 5 mg PO Q6H PRN PRN Reason: Pain, Moderate(Pain Scale 4-6) Last Admin: 07/06/25 23:52 Dose: 5 mg Sodium Chloride (0.9 % Sodium Chloride Flush 3 Ml Syringe) 3 ml IVFLUSH QSHIFT [facility] Last Admin: 07/07/25 01:22 Dose: 3 ml Physical Exam Vital Signs: Vital Signs: Last Vital Signs Temp 98.6 F 07/07/25 03:47 Pulse 85 07/07/25 03:47 Resp 18 07/07/25 03:47 BP 170/107 H 07/07/25 03:47 Pulse Ox 96 07/07/25 03:47 O2 Del Method Room Air 07/07/25 03:47 BMI result Body Mass Index 32.5 Const: General: comfortable, no acute distress and alert Orientation/consciousness: patient oriented x3 Resp: Effort & Inspection: normal respiratory effort Skin: Other: warm and dry,, I&D as noted in extremities Neuro: General: patient oriented x3 and moves all extremities Extrem: Other: left upper extremity- deltoid area with large fluctuant collection small 1cm incision is noted but has subsequently closed, area very tender to palpation, mild induration posteriorly Results Results Labs: Short CBC 07/06/25 Range/Units 14:02 WBC 10.5 (4.8-10.8) X10*3/uL Hgb 12.6 L (14.0-18.0) g/dl Hct 39.2 L (42.0-52.0) % Plt Count 398 (160-400) X10*3/uL BMP 07/06/25 07/07/25 14:02 04:14 Sodium 138 138 Potassium 3.8 3.9 Chloride 107 105 Carbon Dioxide 25 25 BUN 16 15 Creatinine 1.20 1.34 Calcium 8.6 8.3 L Liver Function 07/06/25 Range/Units 14:02 Total Bilirubin 0.2 (0.0-1.0) mg/dL AST 27 (5-37) U/L ALT 29 (0-40) U/L Alkaline Phosphatase 61 (39-117) U/L Albumin 3.4 L (3.5-5.0) g/dL Additional studies: left shoulder CT scan and labs reviewed Assessment and Plan (1) Abscess of left arm: Status: Acute Plan 49 year old male presenting with pain of the left shoulder following an IM testosterone injection found to have an abscess and cellulitis of the area. The area was attempted to be incised and drained in the ED but patient did not tolerate it well and it was stopped. CT scan shows persistent collection. He was therefore admitted to general surgery for further management of the left shoulder abscess and cellulitis. Upon exam today, he has a small I&D site which was probed with a qtip with evacuation of a large amount of purulent drainage and some old blood clots with some light pressure. No further fluctuance appreciated. The area was then packed with 1/4in iodoform packing to facilitate any further drainage followed by dry fluffs and kerlix wrap. He likely developed a hematoma at the injection site that became secondarily infected. The abscess appears adequately drained at this time. Cont IV abx, local wound care as needed. He has been hypertensive and hospitalist consult has been placed. Quality Stroke Does the patient have a stroke diagnosis?: No VTE Prior VTE?: No VTE Risk Level:: Surgical - moderate VTE Device Contraindication: N/A - Device Ordered VTE Drug Contraindication: Treatment Not Indicated Procedures Date of Service Date of Service: 07/07/25
[2025-07-07 06:38] VITALS: BP 157/98
[2025-07-07] MEDS: oxyCODONE HCl Immed Release 5 MG TABLET PO (07:39)
--- NOTE | 2025-07-07 07:48 | HO.NURTONUR ---
PER MD: Markos Bravo is a 49 year old male with no significant PMH who presented with left shoulder pain. He had an IM testosterone injection last week and subsequently developed pain that has been worsening over the past few days associated with swelling, redness and warmth of the area. He therefore came to the ED. Work up included CBC, BMP, LFTs. He had no leukocytosis or lactic acidosis. Left shoulder xray was unremarkable. He had an obvious fluctuance of the soft tissue overlying the left deltoid area with surrounding cellulitis suggesting an abscess. An I&D was attempted with about 30cc of purulent drainage. The patient however did not tolerate this well and the procedure was stopped due to pain. CT scan was then performed of the left shoulder/upper extremity which showed 2.9 x 4.9 x 5.8 cm loculated fluid collection in the soft tissues at the deltoid. Admission was requested due to the persistent abscess collection and further treatment of the left arm cellulitis. He denies fevers, chills, nausea, vomiting, abdominal pain, diarrhea, chest pain, difficulty breathing. PER RN: Alert and oriented Ambulatory and independent IV: right forearm 20G LR at 100 mL/hr Pain: increased at this time after surgical consult. He has received PRN dilaudid and oxy this morning NPO IV ABX NKA Full code
--- NOTE | 2025-07-07 08:13 | HO.PM.IMCN ---
History of Present Illness Data of Consult Service Date: 07/07/25 Requesting physician: Carole Horner Primary Care Provider: None Physician HPI Reason for consult: HTN This is a 49 year old male with no significant past medical history who presents to the ED with pain of his left shoulder. He had IM testosterone injection last week and then developed pain 2 days later which has been worsening over the past several days. He has had increased swelling, redness as well as warmth. He came to the emergency department for evaluation and was found to have cellulitis with abscess. An I and D was attempted however patient was unable to tolerate the procedure. He had a CT scan which showed loculated fluid collection in left upper extremity. He was admitted to the surgical service and underwent I and D at bedside. The hospitalist service was asked to see him in consultation for hypertension. Patient states he does not currently have a primary care provider, he has previously been told that his blood pressure is high but he has never been started on any blood pressure medication in the past. Review of Systems Review of Systems: Yes all other systems are reviewed and are negative Cardiovascular: Cardiovascular: Denies chest pain, Denies palpitations and Denies dyspnea Respiratory: Respiratory: Denies cough and Denies dyspnea Gastrointestinal: Gastrointestinal: Denies abdominal pain, Denies nausea and Denies vomiting Endocrine: Endocrine: Denies palpitations PMFSH Medical History No pertinent past medical history Surgical History S/P repair of pectoralis muscle tear Surgical history unknown Social History Patient Tobacco Use Status: Current everyday Tobacco user Smoked in Last 30 Days: Yes Substance Use Type: Marijuana Substance Use Frequency: Chronic Longstanding Advance Directives: No Advance Directives Information Provided: No Do you have a plan to hurt others: No Plan Nutrition Risks: No Nutritional Risk Current occupational status: employed 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 Meds Allergies Allergy/AdvReac Type Severity Reaction Status Date / Time No Known Allergies Allergy Verified 07/06/25 13:43 Active Medications: Current Medications Acetaminophen (Acetaminophen 325 Mg Tablet) 650 mg PO Q6H PRN PRN Reason: Pain, Mild 1-3,fever,headache Amlodipine Besylate (Amlodipine Besylate 5 Mg Tablet) 5 mg PO DAILY [facility]; Protocol Last Admin: 07/07/25 06:38 Dose: 5 mg Calcium Carbonate (Calcium Carbonate 750 Mg Tab.Chew) 750 mg PO Q4H PRN PRN Reason: Heartburn Docusate Sodium (Docusate Sodium 100 Mg Capsule) 100 mg PO BID [facility] Hydromorphone HCl (Hydromorphone Hcl 1 Mg/Ml Syringe) 0.5 mg IVPUSH Q4H PRN; Protocol PRN Reason: Pain, Severe (Pain Scale 7-10) Last Admin: 07/07/25 06:37 Dose: 0.5 mg Lactated Ringer's (Lr) 1,000 mls @ 100 mls/hr IVCONT .Q10H [facility] Last Admin: 07/07/25 01:23 Dose: 100 mls/hr Doxycycline Hyclate 100 mg/ (Sodium Chloride) 250 mls @ 166.67 mls/hr IV Q12H [facility] Last Admin: 07/07/25 06:45 Dose: 166.67 mls/hr Magnesium Hydroxide (Milk Of Magnesia 30 Ml Oral.Susp) 30 ml PO DAILY PRN PRN Reason: Constipation Melatonin (Melatonin 3 Mg Tablet) 6 mg PO BEDTIME PRN PRN Reason: Insomnia Ondansetron HCl (Ondansetron Hcl 4 Mg/2 Ml Vial) 4 mg IVPUSH Q8H PRN PRN Reason: Nausea and Vomiting Oxycodone HCl (Oxycodone Hcl Immed Release 5 Mg Tablet) 5 mg PO Q6H PRN PRN Reason: Pain, Moderate(Pain Scale 4-6) Last Admin: 07/07/25 07:39 Dose: 5 mg Sodium Chloride (0.9 % Sodium Chloride Flush 3 Ml Syringe) 3 ml IVFLUSH QSHIFT [facility] Last Admin: 07/07/25 07:07 Dose: Not Given Home Medications ?Medication ?Instructions ?Recorded ?Confirmed ?Last Taken ?Type No Known Home Meds 07/07/25 07/07/25 Unknown History Physical Exam Vital Signs and Narrative: Vital Signs: Last Vital Signs Temp 98.6 F 07/07/25 03:47 Pulse 85 07/07/25 03:47 Resp 18 07/07/25 03:47 BP 157/98 H 07/07/25 06:38 Pulse Ox 96 07/07/25 03:47 O2 Del Method Room Air 07/07/25 03:47 BMI result Body Mass Index 32.5 Const: General: cooperative, comfortable, alert and awake Nutritional Appearance: average body habitus Orientation/consciousness: patient oriented x3 Resp: Effort & Inspection: normal respiratory effort, able to speak in complete sentences, no respiratory distress and no use of accessory muscles Cardio: Rate: regular rate Neuro: General: patient oriented x3, moves all extremities and CN's II-XI intact bilaterally Extrem: Other: left shoulder wrapped in c/d/i dressing Results Labs 07/06/25 14:02 07/07/25 04:14 Labs: Laboratory Results - last 24 hr 07/06/25 07/06/25 07/07/25 14:02 20:45 04:14 MCV 83.6 MCH 26.9 L MCHC 32.1 RDW 14.4 Plt Count 398 MPV 8.0 L Immature Gran % (Auto) 1.7 H Neut % (Auto) 65.8 Lymph % (Auto) 21.4 [place] % (Auto) 7.9 Eos % (Auto) 3.0 Baso % (Auto) 0.2 Lymph # (Auto) 2.2 [place] # (Auto) 0.8 Eos # (Auto) 0.3 Baso # (Auto) 0.0 Abs Immat Gran (auto) 0.18 H Absolute Neuts (auto) 6.9 Absolute Nucleated RBC 0.000 Nucleated RBC % (auto) 0.0 ESR 51 H Anion Gap 10 L 12 Estim Creat Clear Calc 86.7 77.6 Estimated GFR > 60 57 Random Glucose 98 Fasting Glucose 91 Lactic Acid 0.9 0.9 Calcium 8.6 8.3 L Magnesium 1.9 Total Bilirubin 0.2 AST 27 ALT 29 Alkaline Phosphatase 61 C-Reactive Protein 3.82 H Total Protein 8.6 H Albumin 3.4 L Imaging Radiologist's Impressions: Impressions Shoulder X-Ray 07/06/25 14:15 IMPRESSION: No radiographic evidence of acute osseous findings. Electronically signed by: Chico Prado MD 07/06/2025 02:20 PM EDT RP Assessment and Plan (1) HTN (hypertension): Status: Acute Plan This is a 49-year-old male with no known past medical history, active tobacco use who presents to the emergency department with left arm pain found to have left upper extremity cellulitis with abscess left arm abscess with cellulitis s/p I&D management as per surgical service blood cultures pending HTN started on Norvasc advised to obtain PCP for close monitoring after discharge Tobacco dependence Smoking cessation advised NRT Thank you for allowing us to participate in the care of this patient, we will follow along with you
--- NOTE | 2025-07-07 08:30 | PHA.MEDREC ---
Addendum entered by Devan Aguilar PharmD 07/07/25 08:32: reviewed Original Note: Pharmacy Consult ? Medication Reconciliation Pharmacy has completed the medication reconciliation. Patient states he is not taking any medications.
[2025-07-07 08:56] VITALS: BP 179/97; PULSE 81; RESP 20; TEMP 37.1; O2SAT 92
--- NOTE | 2025-07-07 10:29 | MHC.CM.PN ---
CM MET WITH PT AT BEDSIDE. PT LIVES ALONE AND IS FUNCTIONALLY INDEPENDENT. NO DME OR SERVICES. REQUEST SENT TO [facility] REGARDING NO INSURANCE. + HCP NO PCP, [facility] PROVIDED. DP: HOME, NO SERVICES IS ANTICIPATED. PT HAS OWN RIDE HOME. CM WILL CONTINUE TO FOLLOW FOR ANY CHANGE TO DC PLAN/NEEDS.
[2025-07-07 10:37] VITALS: BMI 32.5
[2025-07-07] MEDS: Nicotine 7 MG PATCH.TD24 TRANSDERMA (10:43)
[2025-07-07 14:28] VITALS: BP 162/92
[2025-07-07 16:24] VITALS: BP 167/93; PULSE 77; RESP 18; TEMP 36.7; O2SAT 94
[2025-07-07 19:09] VITALS: BP 148/70; PULSE 81; RESP 15; TEMP 36.9; O2SAT 95
[2025-07-08] VITALS (7 sets, daily range): BP systolic 145–167; BP diastolic 78–100; PULSE 78–89; RESP 16–18; TEMP 36–36.9; O2SAT 94–98
[2025-07-08] MEDS: oxyCODONE HCl Immed Release 5 MG TABLET PO ×2 (03:48→17:02)
[2025-07-08] MEDS: Nicotine 7 MG PATCH.TD24 TRANSDERMA (07:52)
[2025-07-08] MEDS: 0.9 % Sodium Chloride Flush 3 ML SYRINGE IVFLUSH ×3 (07:52→19:35)
--- NOTE | 2025-07-08 09:48 | HO.PM.IMPN ---
Subjective Subjective Date of Service: 07/08/25 Interval History: seen and examined this morning follow up for medical consultation bp better yesterday afternoon, higher again this am no sob, chest pain, headache Constitutional Constitutional: Denies chills and Denies fever(s) Cardiovascular Cardiovascular: Denies chest pain, Denies palpitations and Denies dyspnea Respiratory Respiratory: Denies cough and Denies dyspnea Gastrointestinal Gastrointestinal: Denies abdominal pain, Denies nausea and Denies vomiting Endocrine Endocrine: Denies palpitations Physical Exam Vital Signs: Vital Signs: Last Vital Signs Temp 98.1 F 07/08/25 07:35 Pulse 78 07/08/25 07:35 Resp 16 07/08/25 07:35 BP 160/100 H 07/08/25 07:52 Pulse Ox 94 07/08/25 07:35 O2 Del Method Room Air 07/08/25 07:35 BMI result Body Mass Index 32.5 Const: General: cooperative, comfortable, alert and awake Nutritional Appearance: average body habitus Orientation/consciousness: patient oriented x3 Resp: Effort & Inspection: normal respiratory effort, able to speak in complete sentences, no respiratory distress and no use of accessory muscles Cardio: Rate: regular rate Neuro: General: patient oriented x3, moves all extremities and CN's II-XI intact bilaterally Extrem: Other: left shoulder wrapped in c/d/i dressing Objective Data Active Medications Acetaminophen (Acetaminophen 325 Mg Tablet) 650 mg PO Q6H PRN PRN Reason: Pain, Mild 1-3,fever,headache Last Admin: 07/08/25 07:58 Dose: 650 mg Documented By: CHERRY Amlodipine Besylate (Amlodipine Besylate 2.5 Mg Tablet) 7.5 mg PO DAILY [facility]; Protocol Last Admin: 07/08/25 07:52 Dose: 7.5 mg Documented By: CHERRY Calcium Carbonate (Calcium Carbonate 750 Mg Tab.Chew) 750 mg PO Q4H PRN PRN Reason: Heartburn Docusate Sodium (Docusate Sodium 100 Mg Capsule) 100 mg PO BID [facility] Last Admin: 07/08/25 07:52 Dose: 100 mg Documented By: CHERRY Hydromorphone HCl (Hydromorphone Hcl 1 Mg/Ml Syringe) 0.5 mg IVPUSH Q4H PRN; Protocol PRN Reason: Pain, Severe (Pain Scale 7-10) Last Admin: 07/08/25 08:35 Dose: 0.5 mg Documented By: CHERRY Doxycycline Hyclate 100 mg/ (Sodium Chloride) 250 mls @ 166.67 mls/hr IV Q12H [facility] Last Infusion: 07/08/25 07:45 Dose: Infused Documented By: CHERRY Magnesium Hydroxide (Milk Of Magnesia 30 Ml Oral.Susp) 30 ml PO DAILY PRN PRN Reason: Constipation Melatonin (Melatonin 3 Mg Tablet) 6 mg PO BEDTIME PRN PRN Reason: Insomnia Nicotine (Nicotine 7 Mg Patch.Td24) 7 mg TRANSDERMA DAILY [facility] Last Admin: 07/08/25 07:52 Dose: 7 mg Documented By: CHERRY Nicotine Polacrilex (Nicotine Polacrilex 2 Mg Gum) 2 mg BUCCAL Q2H PRN PRN Reason: Nicotine Cravings Ondansetron HCl (Ondansetron Hcl 4 Mg/2 Ml Vial) 4 mg IVPUSH Q8H PRN PRN Reason: Nausea and Vomiting Oxycodone HCl (Oxycodone Hcl Immed Release 5 Mg Tablet) 5 mg PO Q6H PRN PRN Reason: Pain, Moderate(Pain Scale 4-6) Last Admin: 07/08/25 03:48 Dose: 5 mg Documented By: GRICELDA Sodium Chloride (0.9 % Sodium Chloride Flush 3 Ml Syringe) 3 ml IVFLUSH QSHIFT [facility] Last Admin: 07/08/25 07:52 Dose: 3 ml Documented By: CHERRY Labs 07/06/25 14:02 07/07/25 04:14 Microbiology Microbiology Results: Microbiology 07/06/25 17:59 Blood Culture - Preliminary Blood - Venous No growth after 24 hours. 07/06/25 14:02 Blood Culture - Preliminary Blood - Venous No growth after 24 hours. Assessment and Plan (1) HTN (hypertension): Status: Acute Plan This is a 49-year-old male with no known past medical history, active tobacco use who presents to the emergency department with left arm pain found to have left upper extremity cellulitis with abscess left arm abscess with cellulitis s/p I&D receiving IV doxycycline management as per surgical service blood cultures negative to date HTN started on Norvasc, may need further dose titration, follow up bp this afternoon advised to obtain PCP for close monitoring after discharge Tobacco dependence Smoking cessation advised NRT Thank you for allowing us to participate in the care of this patient, we will follow along with you Quality Stroke Does the patient have a stroke diagnosis?: No VTE Prior VTE?: No VTE Risk Level:: Surgical - moderate VTE Device Contraindication: N/A - Device Ordered VTE Drug Contraindication: Treatment Not Indicated
--- NOTE | 2025-07-08 11:45 | PM.PNGS ---
Subjective Subjective Date of Service: 07/08/25 Interval history: Overall feels better but anxious about dressing change. Area remains sore. Physical Exam Vital Signs: Vital Signs: Last Vital Signs Temp 98.1 F 07/08/25 07:35 Pulse 78 07/08/25 07:35 Resp 16 07/08/25 07:35 BP 160/100 H 07/08/25 07:52 Pulse Ox 94 07/08/25 07:35 O2 Del Method Room Air 07/08/25 07:35 BMI result Body Mass Index 32.5 Const: General: no acute distress, alert and anxious Resp: Effort & Inspection: normal respiratory effort Skin: Other: warm and dry Extrem: Other: left shoulder region with no further fluctuance appreciated, wound probed with only scant sanguineous drainage, no purulence, mild surrounding induration, area remains tender Objective Data Active Medications Acetaminophen (Acetaminophen 325 Mg Tablet) 650 mg PO Q6H PRN PRN Reason: Pain, Mild 1-3,fever,headache Last Admin: 07/08/25 07:58 Dose: 650 mg Documented By: CHERRY Amlodipine Besylate (Amlodipine Besylate 2.5 Mg Tablet) 7.5 mg PO DAILY [facility]; Protocol Last Admin: 07/08/25 07:52 Dose: 7.5 mg Documented By: CHERRY Calcium Carbonate (Calcium Carbonate 750 Mg Tab.Chew) 750 mg PO Q4H PRN PRN Reason: Heartburn Docusate Sodium (Docusate Sodium 100 Mg Capsule) 100 mg PO BID [facility] Last Admin: 07/08/25 07:52 Dose: 100 mg Documented By: CHERRY Hydromorphone HCl (Hydromorphone Hcl 1 Mg/Ml Syringe) 0.5 mg IVPUSH Q4H PRN; Protocol PRN Reason: Pain, Severe (Pain Scale 7-10) Last Admin: 07/08/25 08:35 Dose: 0.5 mg Documented By: CHERRY Doxycycline Hyclate 100 mg/ (Sodium Chloride) 250 mls @ 166.67 mls/hr IV Q12H [facility] Last Infusion: 07/08/25 07:45 Dose: Infused Documented By: CHERRY Magnesium Hydroxide (Milk Of Magnesia 30 Ml Oral.Susp) 30 ml PO DAILY PRN PRN Reason: Constipation Melatonin (Melatonin 3 Mg Tablet) 6 mg PO BEDTIME PRN PRN Reason: Insomnia Nicotine (Nicotine 7 Mg Patch.Td24) 7 mg TRANSDERMA DAILY [facility] Last Admin: 07/08/25 07:52 Dose: 7 mg Documented By: CHERRY Nicotine Polacrilex (Nicotine Polacrilex 2 Mg Gum) 2 mg BUCCAL Q2H PRN PRN Reason: Nicotine Cravings Ondansetron HCl (Ondansetron Hcl 4 Mg/2 Ml Vial) 4 mg IVPUSH Q8H PRN PRN Reason: Nausea and Vomiting Oxycodone HCl (Oxycodone Hcl Immed Release 5 Mg Tablet) 5 mg PO Q6H PRN PRN Reason: Pain, Moderate(Pain Scale 4-6) Last Admin: 07/08/25 03:48 Dose: 5 mg Documented By: GRICELDA Sodium Chloride (0.9 % Sodium Chloride Flush 3 Ml Syringe) 3 ml IVFLUSH QSHIFT [facility] Last Admin: 07/08/25 07:52 Dose: 3 ml Documented By: CHERRY Labs 07/06/25 14:02 07/07/25 04:14 Microbiology Microbiology Results: Microbiology 07/06/25 17:59 Blood Culture - Preliminary Blood - Venous No growth after 24 hours. 07/06/25 14:02 Blood Culture - Preliminary Blood - Venous No growth after 24 hours. Procedures Date of Service Date of Service: 07/08/25 Progress Note: A&P Assessment and plan (1) Abscess of left arm: Status: Acute (2) HTN (hypertension): Status: Acute Plan Left shoulder I&D site - dressing and packing change, no further fluctuance appreciated and cellulitic changes improving. Cont daily dressing changes. He did require IV analgesics but will reassess later today for possible dc to home on oral abx with f/u in office in 1 week if he is more comfortable. Hospitalists following for HTN- started on norvasc 10mg. Time Spent With Patient Time: Total time managing care of this patient today ____ minutes. Quality Stroke Does the patient have a stroke diagnosis?: No VTE Prior VTE?: No VTE Risk Level:: Surgical - moderate VTE Device Contraindication: N/A - Device Ordered VTE Drug Contraindication: Treatment Not Indicated
--- NOTE | 2025-07-08 14:42 | MHC.CM.PN ---
Per MD rounds not cleared to dc today. DP Home self care. He will arrange for transportation home. Patient does not qualify for home services r/t no PCP to sign orders for Homecare.
[2025-07-09 03:52] VITALS: BP 170/79; PULSE 80; RESP 18; TEMP 36.5; O2SAT 97
[2025-07-09] MEDS: oxyCODONE HCl Immed Release 5 MG TABLET PO (05:56)
[2025-07-09 07:26] VITALS: BP 154/88; PULSE 75; RESP 18; TEMP 36.7; O2SAT 96
[2025-07-09] MEDS: Nicotine 7 MG PATCH.TD24 TRANSDERMA (08:20)
--- NOTE | 2025-07-09 12:00 | MHC.CM.PN ---
pt dcd home self care
--- NOTE | 2025-07-09 12:14 | P.PNGS_ITS ---
Subjective Subjective Date of Service: 07/09/25 Interval history: Continues to report left shoulder pain however pain is much improved from admission. Physical Exam 2 Vital Signs: Vital Signs: Last Vital Signs Temp 98.1 F 07/09/25 07:26 Pulse 75 07/09/25 07:26 Resp 18 07/09/25 07:26 BP 154/88 H 07/09/25 07:26 Pulse Ox 96 07/09/25 07:26 O2 Del Method Room Air 07/09/25 07:26 BMI result Body Mass Index 32.5 Const: General: comfortable Nutritional Appearance: well nourished O rientation/consciousness: patient oriented x3 Neuro: General: patient oriented x3 Extrem: Other: Dressing changed to left shoulder. Packing advanced and thin bloody fluid noted. No erythema or purulence discharge noted. Clean dressings applied. Patient tolerated this well. Objective Data Active Medications Acetaminophen (Acetaminophen 325 Mg Tablet) 650 mg PO Q6H PRN PRN Reason: Pain, Mild 1-3,fever,headache Last Admin: 07/08/25 07:58 Dose: 650 mg Documented By: CHERRY Amlodipine Besylate (Amlodipine Besylate 10 Mg Tablet) 10 mg PO DAILY [facility]; Protocol Last Admin: 07/09/25 08:20 Dose: 10 mg Documented By: NAEL Calcium Carbonate (Calcium Carbonate 750 Mg Tab.Chew) 750 mg PO Q4H PRN PRN Reason: Heartburn Docusate Sodium (Docusate Sodium 100 Mg Capsule) 100 mg PO BID [facility] Last Admin: 07/09/25 08:20 Dose: 100 mg Documented By: NAEL Doxycycline Monohydrate (Doxycycline Monohydrate 100 Mg Capsule) 100 mg PO Q12H [facility] Hydromorphone HCl (Hydromorphone Hcl 1 Mg/Ml Syringe) 0.5 mg IVPUSH Q4H PRN; Protocol PRN Reason: Pain, Severe (Pain Scale 7-10) Last Admin: 07/09/25 10:04 Dose: 0.5 mg Documented By: NAEL Magnesium Hydroxide (Milk Of Magnesia 30 Ml Oral.Susp) 30 ml PO DAILY PRN PRN Reason: Constipation Melatonin (Melatonin 3 Mg Tablet) 6 mg PO BEDTIME PRN PRN Reason: Insomnia Nicotine (Nicotine 7 Mg Patch.Td24) 7 mg TRANSDERMA DAILY [facility] Last Admin: 07/09/25 08:20 Dose: 7 mg Documented By: NAEL Nicotine Polacrilex (Nicotine Polacrilex 2 Mg Gum) 2 mg BUCCAL Q2H PRN PRN Reason: Nicotine Cravings Ondansetron HCl (Ondansetron Hcl 4 Mg/2 Ml Vial) 4 mg IVPUSH Q8H PRN PRN Reason: Nausea and Vomiting Oxycodone HCl (Oxycodone Hcl Immed Release 5 Mg Tablet) 5 mg PO Q6H PRN PRN Reason: Pain, Moderate(Pain Scale 4-6) Last Admin: 07/09/25 05:56 Dose: 5 mg Documented By: ANDREW Sodium Chloride (0.9 % Sodium Chloride Flush 3 Ml Syringe) 3 ml IVFLUSH QSHIFT [facility] Last Admin: 07/09/25 08:24 Dose: Not Given Documented By: NAEL Non-Admin Reason: Administered by Alternate Route Labs 07/06/25 14:02 07/07/25 04:14 Microbiology Microbiology Results: Microbiology 07/06/25 17:59 Blood Culture - Preliminary Blood - Venous No growth after 48 hours. 07/06/25 14:02 Blood Culture - Preliminary Blood - Venous No growth after 48 hours. Procedures Date of Service Date of Service: 07/09/25 Progress Note: A&P Assessment and plan (1) Abscess of left arm: Status: Acute Plan Overall patient is much improved with decreased pain in the left shoulder. Packing was advanced and dressings changed. Patient is ready for discharge to home today. He will continue on the doxycycline for another 7 days. He was given a prescription for pain medication as well. He will follow up in the office earlier this week. Time Spent With Patient Time: Total time managing care of this patient today ____ minutes. Quality Stroke Does the patient have a stroke diagnosis?: No VTE Prior VTE?: No VTE Risk Level:: Surgical - moderate VTE Device Contraindication: N/A - Device Ordered VTE Drug Contraindication: Treatment Not Indicated
[2025-07-09 12:19] VITALS: BP 163/87; PULSE 69; RESP 18; TEMP 37.1; O2SAT 97
--- NOTE | 2025-07-12 14:39 | P.DS_ITS ---
DS: Providers Provider Date of Service: 07/09/25 Date of admission: 07/06/25 22:53 Date of discharge: 07/09/25 Primary care physician: None Physician Attending physician on admission: Nolan Nixon Consults: 07/07/25 05:44 Consult to Hospitalist Routine Comment: Consulting Provider: [facility] Hospitalists Reason For Exam: hypertension Attending physician on discharge: Nolan Nixon DS: Diagnosis Discharge Diagnosis (1) Abscess of left arm: Status: Acute DS: Summary Hospital Course Hospital Course: HPI AT ADMISSION: Markos Bravo is a 49 year old male with no known PMH who presented with left shoulder pain. He had an IM testosterone injection last week and subsequently developed pain two days later. The pain has been worsening over the past few days associated with swelling, redness and warmth of the area. He had subjective fevers. He therefore came to the ED. Work up included CBC, BMP, LFTs. He had no leukocytosis or lactic acidosis. Left shoulder xray was unremarkable. He had an obvious fluctuance of the soft tissue overlying the left deltoid area with surrounding cellulitis suggesting an abscess. An I&D was attempted with about 30cc of purulent drainage. The patient however did not tolerate this well and the procedure was stopped due to pain. CT scan was then performed of the left shoulder/upper extremity which showed 2.9 x 4.9 x 5.8 cm loculated fluid collection in the soft tissues at the deltoid. Admission was requested due to the persistent abscess collection and further treatment of the left arm cellulitis. He denies fevers, chills, nausea, vomiting, abdominal pain, diarrhea, chest pain. He reports some shortness of breath at night and was told prior he has sleep apnea but he does not use CPAP. He has not seen a PCP in many years. HOSPITAL COURSE: The area was attempted to be incised and drained in the ED but patient did not tolerate it well and it was stopped. CT scan shows persistent collection. He was therefore admitted to general surgery for further management of the left shoulder abscess and cellulitis. He had a small I&D site which was probed with a qtip with evacuation of a large amount of purulent drainage and some old blood clots with some light pressure and the area was then packed with 1/4in iodoform packing to facilitate any further drainage followed by dry fluffs and kerlix wrap. He likely developed a hematoma at the injection site that became secondarily infected. The abscess continued to appear adequately drained. He remained inpatient for 2 days for IV abx, local wound care and analgesia. He was persistently hypertensive and was started on Norvasc 10mg PO daily by the hospitalist service. He was instructed to follow up and find a new PCP to manage his hypertension. He was discharged to home on 07/09/25 in stable condition on oral doxycycline with follow up in the office next week to remove the packing/wound care. Status at Discharge Functional status at discharge: independent ambulation Overall status at discharge: patient is progressing back to baseline Time Attestation Discharge Coordination Time (in mins): 25 Quality: Safe Use of Opioids Does Pt have an Active Cancer Diagnosis on the Problem List?: No Quality: Stroke Does the patient have a stroke diagnosis?: No Physical Exam Vital Signs: Vital Signs: Last Vital Signs Temp 98.8 F 07/09/25 12:19 Pulse 69 07/09/25 12:19 Resp 18 07/09/25 12:19 BP 163/87 H 07/09/25 12:19 Pulse Ox 97 07/09/25 12:19 O2 Del Method Room Air 07/09/25 12:19 BMI result Body Mass Index 32.5 Const: General: comfortable, no acute distress and alert Orientation/consciousness: patient oriented x3 Resp: Effort & Inspection: normal respiratory effort Skin: Other: warm and dry Neuro: General: patient oriented x3 Extrem: Other: left arm I&D site without further fluctuance, packing in place, mildly tender Discharge Plan Discharge Anticipated Discharge Date/Time: 07/09/25 11:24 Patient Disposition: Home, Self-Care Discharge Diagnosis: left shoulder abscess and cellulitis Referrals: Nolan Nixon MD [Physician, General Surgery] - 1 Week Physician,None [Primary Care Provider, Medical] - 1 Week Discharge Medications: New amlodipine [Norvasc] 10 mg tablet 10 mg PO DAILY 90 Days Qty: 90 0RF docusate sodium [Colace] 100 mg capsule 100 mg PO BID PRN (Reason: constipation) Qty: 30 0RF doxycycline monohydrate 100 mg Capsule 100 mg PO Q12H Qty: 14 0RF oxycodone 5 mg tablet 5 mg PO Q6H PRN (Reason: pain (scale score 7-10)) Qty: 15 0RF Rx Instructions: Partial Fill upon patient request. No Action oxycodone 5 mg tablet 5 mg PO Q6H PRN (Reason: pain) Qty: 10 0RF Rx Instructions: Partial Fill upon patient request. Discharge Orders: Discharge Order (Routine); Ordered 07/09/25 Ordered By: Nolan Nixon Diet: Advance to usual diet Activity on Discharge: No heavy lifting Stand Alone Forms: Patient Portal Discharge page Print Language: Syriac Activity Restrictions/Additional Instructions: Follow up in office in a week. ([phone]) Wound care: dressing change with dry fluffs to I&D site followed by tape, change daily and as needed. Call Your Doctor If: ? ? -Your temperature exceeds 101.5? F? ? ? -You experience excessive pain or swelling ? ? -You have an unexpected reaction to medication ? ? -You experience continued vomiting/nausea Care Plan Goals: Return to baseline health and resume normal activities as tolerated; wound closure. Health Concerns: left shoulder abscess hypertension Plan of Treatment: S/p I&D of left shoulder abscess, IV transitioned to oral antibiotics Daily wound care; follow up with general surgery in 1 week [facility] for hypertension PCP follow up for blood pressure Assessment: Improved Patient Instructions: Doxycycline (By mouth) (Acticlate, Adoxa, Avidoxy, Monodox, Doryx) Discharge Date/Time: 07/09/25 12:26
== END 2025-07-09 12:26 | disposition home or self-care (01) | DRG 721 ==
LOC: HO.ED 22:58 → HO.EDOVER 23:18 → HO.S3 07-07 07:16
PROVIDERS: Physician Assistant Medical; Admitting Provider Physician Assistant Surgical; Emergency Provider Student in an Organized Health Care Education/Training Program; Visit Provider Physician Assistant Surgical
DX: T80.29XA Infection following other infusion, transfusion and therapeutic injection, initial encounter (principal); L02.414 Cutaneous abscess of left upper limb; F17.210 Nicotine dependence, cigarettes, uncomplicated; I10 Essential (primary) hypertension; L03.114 Cellulitis of left upper limb; Z71.6 Tobacco abuse counseling; Z79.899 Other long term (current) drug therapy
CPT/HCPCS: 36415; 73030; 73201; 80048; 80053; 83605; 83735; 85025; 85652; 86140; 87040; 99285; J0696; J1171; J1271; J2003; J2270; J3373; J7120; Q9967

== ENCOUNTER → 2025-07-06 13:43 | Outpatient (BNV) | payer OTHER, SELFPAY | PROVIDERS: Visit Provider Radiology Diagnostic Ultrasound | DX: L02.414 Cutaneous abscess of left upper limb (principal) | CPT/HCPCS: 73030 ==

== ENCOUNTER → 2025-07-06 22:53 | Outpatient (BNV) | payer MEDICAID, SELFPAY | PROVIDERS: Admitting Provider Physician Assistant Surgical; Emergency Provider Student in an Organized Health Care Education/Training Program; Visit Provider Physician Assistant Medical | DX: I10 Essential (primary) hypertension (principal) | CPT/HCPCS: 99223; 99232 ==

== ENCOUNTER → 2025-07-06 22:53 | Outpatient (BNV) | payer MEDICAID, SELFPAY | PROVIDERS: Admitting Provider Physician Assistant Surgical; Emergency Provider Student in an Organized Health Care Education/Training Program; Visit Provider Physician Assistant Surgical | DX: L02.414 Cutaneous abscess of left upper limb (principal) | CPT/HCPCS: 99222 ==

== ENCOUNTER 2025-07-12 13:24 | Outpatient (AMB) | payer MEDICAID, SELFPAY ==
--- NOTE | 2025-07-12 13:36 | A.OFFVIS_ITS ---
Vital Signs 07/12/25 13:46 Height 5 ft 9 in Weight 228 lb BMI 33.7 BP 156/93 H Blood Pressure Location Rt brachial Position Sitting Pulse 84 Intake Visit Reasons: s/p left shoulder I&D *Hospital ffup Intake Note: Patient here today to follow up hospitalization for abscess on left posterior shoulder. I&D X2. Patient c/o: improving w/Doxycycline 100mg BID X7d. Swelling improved. Site painful to touch. Taking Oxycodone. Industrial Hygenist Required: No Accompanied by: Self / Same As Patient Allergies No Known Allergies Allergy (Verified 07/12/25 13:37) HPI HPI s/p left shoulder I&D *Hospital ffup: Details: Continues to have intermittent throbbing pain in the left deltoid depending on the use of the arm and how he positions it. He states he is unable to look at this wound so he did not remove any of the dressings are packing at home. He is unsure about drainage because he has not looked at it. He does state that overall he feels better than prior to the incision and drainage. Still requiring oxycodone as needed for pain control. He denies fevers at home. 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 Scant serosanguineous drainage, no purulence or warmth Exquisitely tender Neuro General: patient oriented x3 Assessment & Plan Assessment & Plan (1) Abscess of left arm: Code(s): L02.414 - Cutaneous abscess of left upper limb Category: Medical Plan 49-year-old male s/p I&D of left deltoid abscess following testosterone injection returning to the office for wound check. He reports that the areas still very tender, often throbbing when he lifts his arm hanging down or has to use it. He has left the dressing in place because he is not comfortable looking at the wound or caring for it. Denies fevers or chills. On exam 3 x 3 cm area of edema, however there was no palpable fluctuance. Dressing and packing were removed, there was Scant serosanguineous drainage, no purulence or warmth. The exam was limited due to pain. The wound was again packed with quarter-inch iodoform packing dressed with gauze. He will follow up with our nurse Polo later this week. We will send for another short script of oxycodone as he is almost produces last prescription and is struggling to manage pain with [id number] analgesics. He will return for another visit next week. Can call and make an appointment to be seen sooner with any concerns. Medications: New oxycodone Partial Fill upon patient request. 5 mg PO Q6H PRN 10 tabs 0RF pain Coding Level of Care Code Est Pt Level 3 (70494) Diagnoses Abscess of left arm L02.414
[2025-07-12 13:46] VITALS: BP 156/93; PULSE 84; BMI 33.7
== END 2025-07-12 14:09 | disposition home or self-care (01) ==
LOC: HO.HGS 13:25
DX: L02.414 Cutaneous abscess of left upper limb (principal)
CPT/HCPCS: 99213

== ENCOUNTER → 2025-07-12 13:24 | Outpatient (BNVA) | payer MEDICAID, SELFPAY | DX: Z48.01 Encounter for change or removal of surgical wound dressing (principal); L02.414 Cutaneous abscess of left upper limb; Z79.2 Long term (current) use of antibiotics | CPT/HCPCS: 99212 ==

== ENCOUNTER 2025-07-14 11:29 | Outpatient (AMB) | payer MEDICAID, SELFPAY ==
--- NOTE | 2025-07-19 13:42 | AM.OFFVISNUR ---
Intake Visit Reasons: I&D~ Lt post shoulder Allergies No Known Allergies Allergy (Verified 07/12/25 13:37) Nursing Note Pt reports for dressing change of I&D site left upper arm. Old dressing removed, packing removed, serosang. drainage noted but no purulence, no odor, swelling has decreased and pt reports less pain. He is still taking his antibiotics. Wound was repacked, covered with gauze and anchored with cloth tape. Pt advised to remove the packing on Friday and keep covered with gauze or large bandaid until it stops draining. He will report next week for assessment with PA. He knows to call if he has any issues before then. Coding Level of Care Code Established Pt Est Pt Level 1 (01933) Patient Type Established History Problem Focused Exam Problem Focused Medical Decision Making Straight Forward Time Spent (min) 15 Comment dressing change, wound teaching
== END 2025-07-14 12:04 | disposition home or self-care (01) ==
LOC: HO.HGS 11:30
DX: L02.414 Cutaneous abscess of left upper limb (principal)
CPT/HCPCS: 99213

== ENCOUNTER → 2025-07-14 11:29 | Outpatient (BNVA) | payer OTHER, SELFPAY | DX: Z48.01 Encounter for change or removal of surgical wound dressing (principal) | CPT/HCPCS: 99212 ==

== ENCOUNTER 2025-07-19 14:44 | Outpatient (AMB) | payer MEDICAID, SELFPAY ==
[2025-07-19 14:49] VITALS: BP 140/73; PULSE 98; BMI 34.0
--- NOTE | 2025-07-19 14:49 | MHC.OFFVIS ---
Vital Signs 07/19/25 14:49 Height 5 ft 9 in Weight 230 lb BMI 34.0 BP 140/73 H Blood Pressure Location Rt brachial Position Sitting Pulse 98 Intake Visit Reasons: 1wk s/p left shoulder I&D Intake Note: Patient here for 1wk follow up abscess on Lt deltoid. S/p I&D of left deltoid abscess following testosterone injection. Patient c/o: abscess site not as painful. Completed Doxycycline course. Reports mother changed dressing on Friday (3d ago). 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 Still has some pain but better than last week. Able to do more with his arm. States his mother change the dressing on Friday, removed the packing, the dressing has been in place since Friday, he has unable to look at this so does not contribute much in terms of history. 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 Skin appears well-perfused, no evidence of cellulitis. No active draining, incision site appears closed at this point. Improvement in swelling and pain Assessment & Plan Assessment & Plan (1) Abscess of left arm: Code(s): L02.414 - Cutaneous abscess of left upper limb Category: Medical Plan 49-year-old male s/p I&D of left deltoid abscess following testosterone injection returning to the office for wound check. 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 He is able to do more with his arm. He reports that the swelling has improved. His mother remove the packing on Friday and change the dressing. He has not done any dressing changes since. Has little to contribute regarding the state of the wound. Denies fevers or chills. Unsure about discharge with the surrounding skin. He completed his course of antibiotics. On exam there was improvement overall from last week, swelling is decreased significantly, however the incision and drainage site is now closed scabbed over. I was able to appreciate a small fluid collection in this area, this is likely seroma as he was previously draining serous fluid but now that this has closed after removal of packing it is likely that this fluid has building up. It does not appear acutely infected, there was no cellulitic changes, no purulence, no warmth. At this point I do not think it is compromising the skin so we will try more conservative measures this week, recommended warm compress 2 to 3 times a day. He will return for another visit next week. Discussed options for next visit, if not improving may need to open this up again to allow this to drain, we will reassessed at that time. Can call and make an appointment to be seen sooner with any concerns. Coding Level of Care Code Est Pt Level 3 (97689) Diagnoses Abscess of left arm L02.414
== END 2025-07-19 14:57 | disposition home or self-care (01) ==
DX: L02.414 Cutaneous abscess of left upper limb (principal)
CPT/HCPCS: 99213

== ENCOUNTER → 2025-07-19 14:44 | Outpatient (BNVA) | payer OTHER, SELFPAY | DX: Z98.890 Other specified postprocedural states (principal); L02.414 Cutaneous abscess of left upper limb | CPT/HCPCS: 99212 ==

== ENCOUNTER 2025-07-26 10:26 | Outpatient (AMB) | payer MEDICAID, SELFPAY ==
--- NOTE | 2025-07-26 10:28 | MHC.OFFVIS ---
Vital Signs 07/26/25 10:34 Height 5 ft 9 in Weight 234 lb BMI 34.6 BP 142/81 H Blood Pressure Location Rt brachial Position Sitting Pulse 88 Intake Visit Reasons: 1wk s/p left shoulder I&D Intake Note: Patient here for 1wk follow up abscess on Lt deltoid. S/p I&D of left deltoid abscess following testosterone injection. NIKIA (BENJAMIN): 07-19-2025 Patient c/o: shoulder area feels tight. Denies oozing. 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 No significant pain, just some shoulder tightness. Has no longer been draining. Feeling more comfortable moving his arm around. Has been doing warm compresses. 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 Nontender to palpation Assessment & Plan Assessment & Plan (1) Abscess of left arm: Code(s): L02.414 - Cutaneous abscess of left upper limb Category: Medical Plan 49-year-old male s/p I&D of left deltoid abscess following testosterone injection returning to the office for wound check. Continues to improve, still feels it looks a little swollen but his pain is now just some shoulder tightness. Denies any further drainage. Denies fevers at home. On exam there was improvement from last week, swelling is decreased significantly, I am unable to appreciate any fluid collection as I was at last visit. There was still mild to moderate edema and induration but overall this does look improved. There is much less tenderness. At this point I do not think it is acutely infected or compromising the skin so we will have him continue conservative measures recommended warm compress 2 to 3 times a day. At this point can continue with this plan at home, no follow-up necessary, can follow up as needed with any changes or concerns in the future Coding Level of Care Code Est Pt Level 3 (35204) Diagnoses Abscess of left arm L02.414
[2025-07-26 10:34] VITALS: BP 142/81; PULSE 88; BMI 34.6
== END 2025-07-26 10:43 | disposition home or self-care (01) ==
LOC: HO.HGS 10:26
DX: L02.414 Cutaneous abscess of left upper limb (principal)
CPT/HCPCS: 99213

== ENCOUNTER → 2025-07-26 10:26 | Outpatient (BNVA) | payer OTHER, SELFPAY | DX: L02.414 Cutaneous abscess of left upper limb (principal) | CPT/HCPCS: 99212 ==

== ENCOUNTER 2025-08-09 10:25 | Outpatient (AMB) | payer MEDICAID, SELFPAY ==
--- NOTE | 2025-08-09 10:36 | MHC.OFFVIS ---
Vital Signs 08/09/25 10:48 Height 5 ft 9 in Weight 238 lb BMI 35.1 BP 162/78 H Blood Pressure Location Lt brachial Position Sitting Pulse 94 Intake Visit Reasons: I&D shoulder concerns Intake Note: Patient is seen in office for wound check, post abscess of the left shoulder. 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 Also having neck pain on the same side. Has tried heat to the area without much improvement. 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 No palpable fluid collection, no surrounding erythema. Minimally tender. No palpable induration Assessment & Plan Assessment & Plan (1) Abscess of left arm: Code(s): L02.414 - Cutaneous abscess of left upper limb Category: Medical Plan 49-year-old male s/p I&D of left deltoid abscess following testosterone injection returning to the office for concern of swelling at site of left deltoid. Denies fevers at home, denies drainage. Noticed when working out that there was an area of swelling and has been having some discomfort with motion. Additionally having some neck pain. On exam there was minimal tenderness, visually I can see some edema of the area but would describe this has mild. I was unable to appreciate any fluid collection or induration. There were no changes to the surrounding skin. At this point I do not think it is acutely infected or compromising the skin so we will have him continue conservative measures recommended warm compress 2 to 3 times a day. We will also order for ultrasound of the area to rule out an underlying pathology or fluid collection. In regards to his neck pain this may be related to some guarding. Recommended continuing supportive care, warm compresses [id number] analgesics as needed. He will call to schedule an appointment after he receives an appointment for ultrasound, scheduling we will reach out to him to schedule the ultrasound. He can follow up sooner with any concerns prior to his next appointment Orders: Orders US Extremity Nonvas Limited RT Today L02.414 - Cutaneous abscess of left upper limb Coding Level of Care Code Est Pt Level 4 (01529) Diagnoses Abscess of left arm L02.414
[2025-08-09 10:48] VITALS: BP 162/78; PULSE 94; BMI 35.1
== END 2025-08-09 10:51 | disposition home or self-care (01) ==
LOC: HO.HGS 10:26
DX: L02.414 Cutaneous abscess of left upper limb (principal)
CPT/HCPCS: 99214

== ENCOUNTER → 2025-08-09 10:25 | Outpatient (BNVA) | payer OTHER, SELFPAY | DX: L02.414 Cutaneous abscess of left upper limb (principal); M54.2 Cervicalgia | CPT/HCPCS: 99212 ==